=== PATIENT | male | born 1965 | race African-American/Black ===

== ENCOUNTER 2016-03-01 09:17 | Day surgery (SDC) | payer BC ==
[2016-02-29 13:11] VITALS: BMI 36.6
[~2016-03-01 09:17] MED LIST: LACTATED RINGERS 1,000 ML IV SCH
[2016-03-01 09:39] VITALS: RESP 16; TEMP 98
[2016-03-01] MEDS ORDERED: MIDAZOLAM 2 MG/2 ML VIAL ONE (09:57)
[2016-03-01] MEDS ORDERED: LIDOCAINE 1% INJ 10MG/ML (20 ML MDV) ONE (09:57)
[2016-03-01] MEDS ORDERED: PROPOFOL 10 MG/ML 20 ML VIAL IV ONE (09:57)
--- NOTE | 2016-03-01 10:06 | P.GSHP ---
History of Present Illness H&P Date: 03/01/16 Chief Complaint: Colon cancer screening Patient here today for colonoscopy. He has not had one previously. No bowel related complaints. No family history of colon cancer. Past Medical History Past Medical History: GERD/Reflux, Osteoarthritis (OA), Sleep Apnea/CPAP/BIPAP History of Any Multi-Drug Resistant Organisms: None Reported Past Surgical History: Joint Replacement Additional Past Surgical History / Comment(s): rt knee replacement Past Anesthesia/Blood Transfusion Reactions: No Reported Reaction Past Psychological History: No Psychological Hx Reported Smoking Status: Never smoker Past Alcohol Use History: Occasional Past Drug Use History: None Reported - Past Family History Mother Family Medical History: Cancer, Deep Vein Thrombosis (DVT) Father Family Medical History: Cancer Sister(s) Additional Family Medical History / Comment(s): pt. states his sister had a heart attack at the age of 52 and Medications and Allergies Home Medications and Allergies Comment(s): Physical exam: General: Well-developed, well-nourished HEENT: Normocephalic, sclerae nonicteric Abdomen: Nontender, nondistended Extremities: No edema Neuro: Alert and oriented Home Medications Medication Instructions Recorded Confirmed Type Multivitamins, Thera [Multivitamin] 1 tab PO DAILY 04/11/15 02/29/16 History Omeprazole [PriLOSEC] 20 mg PO DAILY 04/11/15 02/29/16 History Allergies Allergy/AdvReac Type Severity Reaction Status Date / Time No Known Allergies Allergy Verified 03/01/16 09:31 Surgical - Exam Vital Signs Temp Pulse Resp BP Pulse Ox 98.0 F 78 16 131/69 95 03/01/16 09:38 03/01/16 09:38 03/01/16 09:38 03/01/16 09:38 03/01/16 09:38 Assessment and Plan (1) Colon cancer screening Narrative/Plan: Will proceed with colonoscopy at this time. Risks of bleeding and bowel perforation were discussed. Status: Acute
--- NOTE | 2016-03-01 10:29 | P.PCN ---
Date of Procedure: 03/01/16 Procedure(s) Performed: PREOPERATIVE DIAGNOSIS: Screening POSTOPERATIVE DIAGNOSIS: Normal exam PROCEDURE: Colonoscopy ANESTHESIA: MAC SURGEON: Pratik Weeks M.D. SPECIMENS: None ENDOSCOPIC PROCEDURE: The patient was placed on the endoscopy table in the left decubitus position. The Olympus colonoscope was inserted into the anus and passed under direct visualization to the base of the cecum. The appendiceal orifice was visualized. From that point the scope was slowly withdrawn inspecting all surfaces carefully. There were no neoplastic inflammatory or polypoid lesions throughout the cecum, ascending, transverse, descending, sigmoid and rectum. There was no diverticulosis noted. Digital rectal examination was normal. The patient was taken to the recovery room in stable condition per anesthesia guidelines. RECOMMENDATIONS: Increase fiber. Follow-up colonoscopy 10 years.
[2016-03-01 10:57] VITALS: BP 131/89; PULSE 69
== END 2016-03-01 11:08 | disposition home or self-care (01) ==
LOC: ORWHC2ENDO 09:17
PROVIDERS: ATTEND Surgery
DX: Z12.11 Encounter for screening for malignant neoplasm of colon (principal); K21.9 Gastro-esophageal reflux disease without esophagitis; G47.33 Obstructive sleep apnea (adult) (pediatric); Z79.899 Other long term (current) drug therapy
CPT/HCPCS: J2250; J2001; J2704; G0121; 45378; 99153

== ENCOUNTER 2017-06-26 17:24 | Emergency (ER) | payer BC ==
[2017-06-26] MEDS ORDERED: ACETAMINOPHEN TAB 500 MG TAB PO STA (18:12)
--- NOTE | 2017-06-26 19:11 | XR ---
EXAMINATION TYPE: XR chest 2V DATE OF EXAM: 06/26/2017 COMPARISON: 04/11/2015 HISTORY: Sore throat TECHNIQUE: Frontal and lateral views of the chest are obtained. FINDINGS: Heart and mediastinum are normal. Lungs are clear. Diaphragm is normal. Bony thorax appear s normal. IMPRESSION: Normal chest. No change.
[2017-06-26] MEDS ORDERED: IPRATROPIUM-ALBUTEROL 3 ML NEB INHALATION STA (19:17)
[2017-06-26] MEDS ORDERED: methylPREDNISolone SOD SUCCI 125 MG/2 ML VIAL IM ONE (19:25)
--- NOTE | 2017-06-26 19:29 | ED ---
General Adult HPI - General Chief complaint: ENT Stated complaint: Sore throat Time Seen by Provider: 06/26/17 18:12 Source: patient, RN notes reviewed Mode of arrival: ambulatory Limitations: no limitations - History of Present Illness Initial comments: 51-year-old male presents to the emergency determine for a chief complaint of upper respiratory symptoms x 5 days. Patient has been coughing up mucus since that time. Patient denies shortness of breath or difficulty breathing or swallowing. Patient also complains of a sore throat. Patient states he feels the mucus is coming from his lungs and does not feel congested in his face. Patient states he took 2 doses of amoxicillin but felt like it was making him cough up more mucus. Patient also had a shot of that though Medrol and Rocephin at his doctor's. Patient states he is still coughing so he wanted to be seen at the emergency department. Patient denies any chronic lung problems. Patient is a nonsmoker. Patient has no other complaints at this time including shortness of breath, chest pain, abdominal pain, nausea or vomiting, headache, or visual changes. - Related Data Home Medications Medication Instructions Recorded Confirmed Amoxicillin 875 mg PO Q12HR 06/26/17 06/26/17 Previous Rx's Medication Instructions Recorded Azithromycin [Zithromax Z-pack] 250 mg PO DIRECTED #6 tab 06/26/17 Guaifenesin/Pseudoephedrne HCl 1 each PO Q12H PRN #20 tab.er.12h 06/26/17 [Mucinex D ER 1,200-120 mg Tab] predniSONE 50 mg PO DAILY #5 tablet 06/26/17 Allergies Allergy/AdvReac Type Severity Reaction Status Date / Time No Known Allergies Allergy Verified 06/26/17 18:19 Review of Systems ROS Statement: Those systems with pertinent positive or pertinent negative responses have been documented in the HPI. ROS Other: All systems not noted in ROS Statement are negative. Past Medical History Past Medical History: Hypertension History of Any Multi-Drug Resistant Organisms: None Reported Past Surgical History: No Surgical Hx Reported Past Psychological History: No Psychological Hx Reported Smoking Status: Never smoker Past Alcohol Use History: None Reported Past Drug Use History: None Reported General Exam Limitations: no limitations General appearance: alert, in no apparent distress Head exam: Present: atraumatic, normocephalic, normal inspection Eye exam: Present: normal appearance, PERRL, EOMI. Absent: scleral icterus, conjunctival injection, periorbital swelling ENT exam: Present: normal exam, mucous membranes moist, TM's normal bilaterally , normal external ear exam. Absent: normal oropharynx (Oropharynx appears slightly erythematous. There is no tonsillar exudates noted bilaterally.) Neck exam: Present: normal inspection. Absent: tenderness, meningismus, full ROM, lymphadenopathy Respiratory exam: Present: normal lung sounds bilaterally. Absent: respiratory distress, wheezes, rales, rhonchi, stridor Cardiovascular Exam: Present: regular rate, normal rhythm, normal heart sounds. Absent: systolic murmur, diastolic murmur, rubs, gallop, clicks Course Vital Signs 06/26/17 06/26/17 06/26/17 18:06 19:30 19:36 Temperature 102.0 F H Pulse Rate 104 H 117 H 119 H Respiratory 18 Rate Blood Pressure 193/92 O2 Sat by Pulse 96 Oximetry Medical Decision Making - Medical Decision Making 51-year-old male presents to the emergency determine for chief complaint of mucus production 5 days. Patient has been coughing up either since that time. Patient states he does not have any shortness of breath or difficulty breathing. No chest pain. Patient also admits to a sore throat. On exam there was erythematous. Lungs are clear to auscultation bilaterally. no pressure in the facial sinuses. Chest x-ray demonstrates a normal chest. Lungs are clear. Influenza A/B and group A strep were negative. Patient was ordered a gram of Tylenol to 202 temperature. Patient is also ordered a DuoNeb and a dose of azithromycin in the emergency department. He will continue azithromycin outpatient. He was not given a shot of Solu-Medrol because he already received a steroid shot earlier today. Patient will be given a prescription for prednisone outpatient. He will also be given a prescription for Mucinex. He is to take the prednisone, azithromycin, and Mucinex as directed. He is to return to the emergency department if he has any shortness of breath or difficulty breathing. He is to follow up with primary care in 1-2 days. - Lab Data Lab Results 06/26/17 06/26/17 Range/Units 18:12 18:18 Influenza Type A RNA Not Detected (Not Detectd) Influenza Type B (PCR) Not Detected (Not Detectd) Group A Strep Rapid Negative (Negative) Disposition Clinical Impression: Bronchitis Disposition: HOME SELF-CARE Condition: Good Instructions: Acute Bronchitis (ED) Additional Instructions: Please take antibiotic and steroid as directed. Take Mucinex as needed. Take Motrin and Tylenol for fever reduction or pain relief. Follow-up with primary care in 1-2 days. Return to the emergency department if you have any worsening symptoms, difficulty breathing, or high fevers that cannot be reduced with medications. Prescriptions: Azithromycin [Zithromax Z-pack] 250 mg PO DIRECTED #6 tab Guaifenesin/Pseudoephedrne HCl [Mucinex D ER 1,200-120 mg Tab] 1 each PO Q12H PRN #20 tab.er.12h PRN Reason: Congestion predniSONE 50 mg PO DAILY #5 tablet Is patient prescribed a controlled substance at d/c from ED?: No Referrals: Hossein Alford Jr, DO [Primary Care Provider] - 1-2 days Time of Disposition: 19:46
[2017-06-26] MEDS ORDERED: AZITHROMYCIN 500 MG TAB PO STA (19:30)
[2017-06-26] MEDS ORDERED: IBUPROFEN 600 MG TAB PO STA (19:55)
[2017-06-26 19:56] VITALS: BP 167/99; PULSE 108; RESP 16; TEMP 101.2
== END 2017-06-26 19:56 | disposition home or self-care (01) ==
LOC: EC 17:24 → MERGE 17:24 → EC 19:56
DX: J40 Bronchitis, not specified as acute or chronic (principal)
CPT/HCPCS: 71046; 87081; 87430; 87502; 94640; 99283

== ENCOUNTER → 2017-09-11 | Outpatient (CLI) | payer BC ==
--- NOTE | 2017-09-12 00:10 | CT ---
EXAMINATION TYPE: CT abdomen pelvis w con DATE OF EXAM: 09/11/2017 COMPARISON: None HISTORY: abdominal pain and cramping X 2 weeks per patient. Left lower quadrant pain and diverticulit is per order. CT DLP: 1667 mGycm, Automated Exposure Control for Dose Reduction was Utilized. CONTRAST: CT scan of the abdomen and pelvis is performed with oral and with IV Contrast, patient injected with 100 mL of Isovue 300. FINDINGS: LUNG BASES: No significant abnormality is appreciated. LIVER/GB: No significant abnormality is appreciated. PANCREAS: No significant abnormality is seen. SPLEEN: There is 9 mm splenule posterior to the spleen. ADRENALS: No significant abnormality is seen. KIDNEYS: Symmetric cortical medullary uptake and excretion from both kidneys without evidence of hydr onephrosis bilaterally. Bladder is poorly distended and suboptimally evaluated. Bladder wall is mildl y concentrically thickened however up to 10 mm. Correlate clinically to exclude acute cystitis. BOWEL: The oral contrast reaches the level of hepatic flexure. There is no suspicious small or large bowel dilatation. Appendix is felt within normal limits from base of cecum. There are a few scattered diverticula throughout the colon without convincing CT evidence for acute diverticulitis. PROSTATE/SEMINAL VESICLES: Prostate gland is felt to upper limits of normal in size with central zone calcifications. Correlate clinically to exclude BPH. LYMPH NODES: No greater than 1cm abdominal or pelvic lymph nodes are appreciated. OSSEOUS STRUCTURES: No significant abnormality is seen. OTHER: Tiny fat-containing umbilical hernia is present. IMPRESSION: Colonic diverticulosis without CT evidence for acute diverticulitis. Attention to bladder and prostate gland. No suspicious acute finding is seen to account for patient's symptoms.
== END | disposition home or self-care (01) ==
LOC: RADCTMAIN 16:33
PROVIDERS: ATTEND Surgery
DX: K57.30 Diverticulosis of large intestine without perforation or abscess without bleeding (principal)
CPT/HCPCS: 74177; Q9967

== ENCOUNTER → 2022-06-07 | Outpatient (CLI) | payer BC ==
--- NOTE | 2022-06-07 16:04 | US ---
EXAMINATION TYPE: US thyroid st tissue head/neck DATE OF EXAM: 06/07/2022 COMPARISON: NONE CLINICAL INDICATION: Male, 56 years old with history of E04.1 NONTOXIC SINGLE THYROID NODULE; Abnorma l labs GLAND SIZE: Right Lobe: 6.1 x 1.7 x 1.6 cm Overall Parenchyma: homogenous Left Lobe: 5.2 x 2.0 x 2.1 cm Overall Parenchyma: homogeneous Isthmus Thickness: 0.4 cm NODULES RIGHT: # of nodules measured on right: 0 LEFT: # of nodules measured on left: 0 ISTHMUS: # of nodules measured in the isthmus: 0 Bilateral neck scanned, no evidence of lymphadenopathy. Bilateral thyroid slightly enlarged, no evid ence of nodules. IMPRESSION: Mild thyromegaly. No discrete nodules are seen.
== END | disposition home or self-care (01) ==
LOC: RADUSWWP 15:26
PROVIDERS: ATTEND Allergy & Immunology
DX: E04.1 Nontoxic single thyroid nodule (principal)
CPT/HCPCS: 76536

== ENCOUNTER → 2022-06-28 | Outpatient (CLI) | payer BC ==
[2022-06-29 02:19] LABS: Basophils # (A) 0.04 X 10*3/uL (0.00-0.10); Basophils % (A) 0.2 %; Eosinophils # (A) 0.12 X 10*3/uL (0.04-0.35); Eosinophils % (A) 0.7 %; HCT 40.5 % (39.6-50.0); HGB 13.1 g/dL (13.0-17.0); Immature Grans, Automated 1.1 %; Lymphocytes # (A) 1.62 X 10*3/uL (0.90-5.00); MCH 31.3 pg (27.0-32.0); MCHC 32.3 g/dL (32.0-37.0); MCV 96.9 fL (80.0-97.0); Mean Platelet Volume 10.9 fL (9.5-12.2); Monocytes # (A) 1.06 X 10*3/uL (0.20-1.00); Monocytes % (A) 6.5 %; NRBC Per 100 WBC 0 /100 WBCS (0.0-0.0); Neutrophils # (A) 13.21 X 10*3/uL (1.80-7.70); Neutrophils % (A) 81.5 %; Platelet Count 223 X 10*3/uL (140-440); RBC 4.18 X 10*6/uL (4.40-5.60); RDW 13.8 % (11.5-14.5); WBC 16.23 X 10*3/uL (4.50-10.00)
[2022-06-29 02:37] LABS: T4, Free (Free Thyroxine) 1.15 ng/dL (0.800-1.800)
[2022-06-29 03:06] LABS: Thyroid Peroxidase Antibodies <9.0 U/mL (0.0-33.0)
[2022-06-29 04:46] LABS: Shrimp IgE 0.41 kU/L
[2022-06-29 12:52] LABS: Cashew IgE <0.10 kU/L (<0.10); Cashew IgE Class CLASS 0
== END | disposition home or self-care (01) ==
LOC: LABWHC1 13:12
PROVIDERS: ATTEND Allergy & Immunology
DX: H10.45 Other chronic allergic conjunctivitis (principal); J30.89 Other allergic rhinitis; T78.3XXA Angioneurotic edema, initial encounter; E04.1 Nontoxic single thyroid nodule
CPT/HCPCS: 36415; 84439; 84443; 84481; 85025; 86003; 86160; 86376; 86800

== ENCOUNTER → 2022-07-31 | Outpatient (CLI) | payer BC ==
[2022-07-31 20:09] LABS: Basophils # (A) 0.05 X 10*3/uL (0.00-0.10); Basophils % (A) 0.6 %; Eosinophils # (A) 0.35 X 10*3/uL (0.04-0.35); Eosinophils % (A) 4.1 %; HCT 42.7 % (39.6-50.0); HGB 14.1 d/dL (12.0-15.0); Lymphocytes # (A) 2.86 X 10*3/uL (0.90-5.00); Lymphocytes % (A) 33.8 %; MCH 31.4 pg (27.0-32.0); MCV 95.1 FL (80.0-97.0); Mean Platelet Volume 11.3 FL (9.5-12.2); Monocytes # (A) 0.59 X 10*3/uL (0.20-1.00); NRBC Per 100 WBC 0 X 10*3/uL (0.00-0.01); Neutrophils # (A) 4.59 X 10*3/uL (1.80-7.70); Neutrophils % (A) 54.3 %; Platelet Count 238 X 10*3/uL (140-440); RBC 4.49 X 10*6/uL (4.40-5.60); RDW 13.4 % (11.5-14.5); WBC 8.46 X 10*3/uL (4.50-10.00)
[2022-07-31 21:08] LABS: ALT 23 U/L (10-49); AST 19 U/L (14-35); Albumin 4.3 d/dL (3.8-4.9); Albumin/Globulin Ratio 1.39 Ratio (1.60-3.17); Alkaline Phosphatase 98 U/L (41-126); BUN/Creat Ratio 20.27 Ratio (12.00-20.00); Blood Urea Nitrogen 22.3 mg/dL (9.0-27.0); Calcium 9.8 mg/dL (8.7-10.3); Carbon Dioxide 26.8 mmol/L (21.6-31.8); Chloride 107 mmol/L (96-109); Globulin 3.1 d/dL (1.6-3.3); Glucose 101 mg/dL (70-110); Potassium 4.6 mmol/L (3.5-5.5); Rheumatoid Factor, Qnt <15 IU/mL (0-15); Sodium 144 mmol/L (135-145); Total Bilirubin 0.2 mg/dL (0.3-1.2); Total Protein 7.4 d/dL (6.2-8.2)
[2022-07-31 22:23] LABS: Hepatitis B Surface Antigen Nonreactive
[2022-08-01 09:58] LABS: Protein, Total 7.4 d/dL (5.7-8.2)
[2022-08-01 12:32] LABS: Free Kappa Lt Chain Qnt, Serum 3.34 mg/dL (0.33-1.94)
[2022-08-01 14:38] LABS: T4/T8 Ratio (CD4:CD8) 1.8 (1.0-3.7)
[2022-08-01 18:26] LABS: Albumin 4.17 d/dL (3.80-4.90); Gamma Globulin 1.64 d/dL (0.70-1.50)
== END | disposition home or self-care (01) ==
LOC: LABWHC1 14:25
PROVIDERS: ATTEND Allergy & Immunology
DX: T78.3XXD Angioneurotic edema, subsequent encounter (principal); R21 Rash and other nonspecific skin eruption; R53.83 Other fatigue; D72.828 Other elevated white blood cell count
CPT/HCPCS: 36415; 80053; 82595; 83883; 84165; 85025; 86038; 86141; 86160; 86161; 86162; 86332; 86334; 86355; 86357; 86359; 86360; 86431; 87340

== ENCOUNTER → 2022-09-11 | Outpatient (CLI) | payer BC ==
[2022-09-11 16:34] LABS: Appearance,Urine Clear (Clear); Bilirubin,Urine Negative (Negative); Blood,Urine Negative (Negative); Color,Urine Yellow (Yellow); Ketones,Urine Negative (Negative); Nitrite,Urine Negative (Negative); PH, Urine 5.5; Specific Gravity,Urine 1.027 (1.001-1.030)
[2022-09-12 10:21] LABS: Free Kappa Lt Chain Qnt, Serum 2.7 mg/dL (0.33-1.94); Free Lambda Lt Chain Qnt, Seru 1.75 mg/dL (0.57-2.63)
== END | disposition home or self-care (01) ==
LOC: LABWHC1 11:36
PROVIDERS: ATTEND Allergy & Immunology
DX: T78.3XXD Angioneurotic edema, subsequent encounter (principal); R82.998 Other abnormal findings in urine
CPT/HCPCS: 36415; 81003; 83883

== ENCOUNTER → 2022-11-27 | Outpatient (CLI) | payer BC ==
--- NOTE | 2022-11-27 12:39 | XR ---
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 No sclerotic or lytic lesion identified. Spine: Two views of the cervical, thoracic and lumbar spines are submitted. No sclerotic or lytic le sae identified. PELVIS: Single view of the pelvis demonstrates. No sclerotic or lytic lesion identified. UPPER EXTREMITIES: Two views of the upper extremities. No sclerotic or lytic lesion identified. LOWER EXTREMITIES: 2 views of the lower extremities. Right knee arthroplasty changes. No sclerotic or lytic lesion identified. IMPRESSION: No sclerotic or lytic osseous lesion identified.
== END | disposition home or self-care (01) ==
LOC: RADXRMAIN 11:35
PROVIDERS: ATTEND Internal Medicine Hematology & Oncology
DX: D47.2 Monoclonal gammopathy (principal); K21.9 Gastro-esophageal reflux disease without esophagitis
CPT/HCPCS: 77075